=== PATIENT | female | born 1985 | race African-American/Black ===

== ENCOUNTER 2018-08-21 20:50 | Emergency (ER) | payer MEDICAID, OTHER ==
[~2018-08-21] VITALS: Ht 149.9 cm; Wt 61.2 kg
--- NOTE | 2018-08-21 21:30 | NUR ---
ERMD at bedside for wound suture of laceration on LH
--- NOTE | 2018-08-21 22:01 | NUR ---
Patient discharged to home in stable conditon. Written and verbal after care instructions given. Patient verbalizes understanding of instructions. Patient ambulated with stable gait.
[2018-08-21 22:03] VITALS: BP 132/72
== END 2018-08-21 22:04 | disposition home or self-care (01) ==
LOC: ER 20:51
DX: S61.412A Laceration without foreign body of left hand, initial encounter (principal); W26.0XXA Contact with knife, initial encounter; Y93.89 Activity, other specified; Y92.89 Other specified places as the place of occurrence of the external cause; Y99.8 Other external cause status
CPT/HCPCS: A4663

== ENCOUNTER 2018-08-23 19:18 | Emergency (ER) | payer MEDICAID ==
[~2018-08-23] VITALS: Ht 149.9 cm; Wt 61.2 kg
--- NOTE | 2018-08-23 19:35 | NUR ---
Dr. Rees at bedside for MSE.
--- NOTE | 2018-08-23 19:46 | NUR ---
Patient discharged to home in stable conditon. Written and verbal after care instructions given. Patient verbalizes understanding of instructions. Pt ambulated out of ER with steady gait, no acute signs of distress, VSS, all belongings taken.
[2018-08-23 19:48] VITALS: BP 101/69
== END 2018-08-23 19:48 | disposition home or self-care (01) ==
LOC: ER 19:18
DX: S61.412D Laceration without foreign body of left hand, subsequent encounter (principal); X58.XXXD Exposure to other specified factors, subsequent encounter
CPT/HCPCS: A4663

== ENCOUNTER 2018-08-29 18:29 | Emergency (ER) | payer MEDICAID ==
[~2018-08-29] VITALS: Ht 149.9 cm; Wt 61.2 kg
--- NOTE | 2018-08-29 18:49 | NUR ---
PAULINA DANIEL AT BEDSIDE FOR MSE.
--- NOTE | 2018-08-29 18:50 | NUR ---
2 SUTURES REMOVED FROM L HAND BY ER . SKIN INTACT, NO BLEEDING NOTED.
--- NOTE | 2018-08-29 18:54 | NUR ---
Patient discharged to home in stable conditon. Written and verbal after care instructions given. Patient verbalizes understanding of instructions. ALL BELONGINGS W/ PT. PT SELF-AMBULATED W/O DIFFICULTY.
[2018-08-29 18:55] VITALS: BP 133/61
== END 2018-08-29 18:56 | disposition home or self-care (01) ==
LOC: ER 18:29
DX: S61.412D Laceration without foreign body of left hand, subsequent encounter (principal); X58.XXXD Exposure to other specified factors, subsequent encounter
CPT/HCPCS: A4663

== ENCOUNTER 2024-03-16 20:27 | Emergency (ER) | payer BC, MEDICAID ==
[~2024-03-16] VITALS: Ht 149.9 cm; Wt 54.4 kg
[2024-03-16] MEDS ORDERED: HYDROCODONE/APAP 5-325MG TABLET ONE (20:56)
[2024-03-16] MEDS: HYDROCODONE/APAP 5-325MG TABLET PO ONE (21:20)
[2024-03-16] MEDS ORDERED: HYDR-3980 PO (21:56)
[2024-03-16 22:00] VITALS: BP 145/62; TEMP 98.1; O2SAT 100
== END 2024-03-16 22:00 | disposition home or self-care (01) ==
LOC: ER 20:27
DX: S46.811A Strain of other muscles, fascia and tendons at shoulder and upper arm level, right arm, initial encounter (principal); Z88.7 Allergy status to serum and vaccine; X50.9XXA Other and unspecified overexertion or strenuous movements or postures, initial encounter; Y93.89 Activity, other specified; Y92.89 Other specified places as the place of occurrence of the external cause; Y99.8 Other external cause status
CPT/HCPCS: 73060; 73090; A4606; A4663